=== PATIENT | male | born 2000 | race Two or more races ===

== ENCOUNTER 2021-10-12 16:53 | Emergency (ER) | payer MEDICAID ==
[~2021-10-12] VITALS: Ht 182.9 cm; Wt 100.0 kg
[2021-10-12 18:31] VITALS: BP 135/80
== END 2021-10-12 20:00 | disposition home or self-care (01) ==
LOC: EMS 16:57
DX: S92.422A Displaced fracture of distal phalanx of left great toe, initial encounter for closed fracture (principal); V19.9XXA Pedal cyclist (driver) (passenger) injured in unspecified traffic accident, initial encounter; Y93.55 Activity, bike riding; Y92.89 Other specified places as the place of occurrence of the external cause; Y99.8 Other external cause status
CPT/HCPCS: 99283